=== PATIENT | female | born 1950 | race American Indian/Alaskan Native ===

== ENCOUNTER 2017-11-15 01:00 | Inpatient (IN) | payer BC, MEDICARE ==
--- NOTE | 2017-11-15 01:11 | C.PDOC ---
History Of Present Illness Patient ate haitian food around 8 pm. then developed some nausea and dizziness, and had 2 vomiting episodes. feels dizzy, no slurred speech, no visual changes, no weakness. Time Seen by Provider: 11/15/17 01:11 Chief Complaint (Nursing): Dizziness/Lightheaded History Per: Patient History/Exam Limitations: no limitations Onset/Duration Of Symptoms: Hrs Current Symptoms Are (Timing): Still Present Activity At Onset Of Symptoms: Sitting Associated Symptoms Preceding Syncopal Episode: Lightheadedness Seizure Or Post-ictal Symptoms: None Possible Causative Factor(s): Other (food, vomiting) Severity: Mild Pain Scale Rating Of: 3 Recent travel outside of the [place]: No Additional History Per: Patient - Symptoms Of CVA Associated Symptoms: denies: Impaired Speech, Seizure Activity, Decreased Ability To Walk Recent Aspirin Use: No Current Coumadin Use?: No Recent Head Trauma: No Past Medical History Reviewed: Historical Data, Nursing Documentation, Vital Signs Vital Signs: Last Vital Signs Temp 98.2 F 11/15/17 01:10 Pulse 74 11/15/17 01:52 Resp 22 11/15/17 01:52 BP 179/89 H 11/15/17 01:10 Pulse Ox 99 11/15/17 01:52 - Medical History PMH: Arthritis, HTN Denies: Chronic Kidney Disease - [facility] COMPLETE THYROIDECTOMY (05/11/14) Family History: States: No Known Family Hx - Social History Hx Tobacco Use: No Hx Alcohol Use: No Hx Substance Use: No - Immunization History Hx Tetanus Toxoid Vaccination: No Hx Influenza Vaccination: Yes Review Of Systems Constitutional: Negative for: Fever, Chills Eyes: Negative for: Redness ENT: Negative for: Throat Pain Cardiovascular: Negative for: Chest Pain, Palpitations Respiratory: Negative for: Shortness of Breath Genitourinary: Negative for: Dysuria Musculoskeletal: Negative for: Back Pain Skin: Positive for: Rash, Lesions (both lower legs) Neurological: Positive for: Dizziness. Negative for: Weakness, Change in Speech , Altered Mental Status, Headache Psych: Positive for: Anxiety Physical Exam - Physical Exam Appears: Non-toxic, No Acute Distress Skin: Warm, Dry Head: Normacephalic Eye(s): bilateral: Normal Inspection, PERRL, EOMI Nose: Normal Oral Mucosa: Moist Tongue: Normal Appearing Neck: Supple Chest: Symmetrical Cardiovascular: Rhythm Regular Respiratory: No Rales, No Rhonchi, No Wheezing Gastrointestinal/Abdominal: Soft, No Tenderness, No Distention, No Guarding, Other (morbidly obese) Back: No CVA Tenderness Extremity: No Tenderness, Pedal Edema (b/l), Other (skin changes vascular stasis ) Extremity: Bilateral: Atraumatic, Normal ROM Pulses: Left Dorsalis Pedis: Normal, Right Dorsalis Pedis: Normal Neurological/Psych: Oriented x3, Normal Speech, Normal Cognition, Normal Motor, Normal Sensation Gait: Steady ED Course And Treatment - Laboratory Results Result Diagrams: 11/15/17 01:20 11/15/17 01:20 ECG: Interpreted By Me, Viewed By Me ECG Rhythm: Sinus Rhythm (71), Nonspecific Changes O2 Sat by Pulse Oximetry: 99 Pulse Ox Interpretation: Normal Critical Care Time - Critical Care Note Total Time (in mins): 30 Documented critical care: time excludes all time spent performing seperately billable procedures. NIHSS Stroke Scale 2 - Date/Time Evaluation Performed Date Performed: 11/15/17 Time Performed: 01:09 When Was NIHSS Performed: Baseline - How Severe is the Stroke Level of Consciousness: 0=Alert LOC to Questions: 0=Both comments correct LOC to commands: 0=Obeys both correctly Best Gaze: 0=Normal Visual: 0=No visual loss Facial: 0=Normal Motor Arm - Left: 0=No drift Motor Arm - Right: 0=No drift Motor Leg - Left: 0=No drift Motor Leg - Right: 0=No drift Limb Ataxia: 0=Absent Sensory: 0=Normal Best Language: 0=No aphasia Dysarthia: 0=Normal articulation Extinction & Inattention (Neglect): 0=Normal, no object Score: 0 Disposition Discussed With : Greg Chauhan Comment: accepted the pt on his service and took over the care at 2 am Doctor Will See Patient In The: Hospital Counseled Patient/Family Regarding: Studies Performed, Diagnosis - Disposition Referrals: Greg Chauhan MD [Primary Care Provider] - Disposition: HOSPITALIZED Disposition Time: 01:11 Condition: FAIR Forms: [facility] (Cam[place]onian) - POA Present On Arrival: Poor Glycemic Control - Clinical Impression Clinical Impression: Dizziness, Hypertension Decision To Admit - Pt Status Changed To: Hospital Disposition Of: Inpatient - Admit Certification Admit to Inpatient:: After my assessment, the patient will require hospitalization for at least two midnights. This is because of the severity of symptoms shown, intensity of services needed, and/or the medical risk in this patient being treated as an outpatient. - InPatient: Physician Admission Certification: I certify that this patient requires 2 or more midnights of care for the following reason:: After my assessment, the patient will require hospitalization for at least two midnights. This is because of the severity of symptoms shown, intensity of services needed, and/or the medical risk in this patient being treated as an outpatient. - . Bed Request Type: Telemetry Admitting Physician: Greg Chauhan Patient Diagnosis: Dizziness, Hypertension
[2017-11-15 01:25] LABS: BASO # 0.1 K/uL (0.0-0.2); BASO % 0.6 % (0.0-2.0); EOS # 0.1 K/uL (0.0-0.7); EOS % 1.5 % (0.0-4.0); HEMOGLOBIN 13.9 g/dL (11.0-16.0); LYMPH # 1.3 K/uL (1.0-4.3); LYMPH % 15.1 % (20.0-40.0); MEAN CELL VOLUME 89.4 fL (81.0-99.0); MEAN CORPUSCULAR HEMOGLOBIN 30.5 pg (27.0-31.0); MEAN CORPUSCULAR HGB CONC 34.1 g/dL (33.0-37.0); MONO # 0.7 K/uL (0.0-0.8); MONO % 8.4 % (0.0-10.0); NEUT # 6.2 K/uL (1.8-7.0); NEUT % 74.4 % (50.0-75.0); RBC 4.56 Mil/uL (3.80-5.20); RED CELL DISTRIBUTION WIDTH 15.2 % (11.5-14.5)
[2017-11-15 01:28] LABS: WHITE BLOOD COUNT 8.4 K/uL (4.8-10.8)
[2017-11-15 01:31] LABS: PROTHROMBIN TIME 11.2 SECONDS (9.7-12.2)
[2017-11-15 01:37] LABS: ALB/GLOB RATIO 1.2 (1.0-2.1); ALBUMIN 4.5 g/dL (3.5-5.0); ALT/SGPT 25 U/L (9-52); AST/SGOT 25 U/L (14-36); BLOOD UREA NITROGEN 16 mg/dL (7-17); CALCIUM 9.3 mg/dl (8.6-10.4); GFR AFRICAN-AMERICAN > 60; GFR NON-AFRICAN AMERICAN > 60; HDL CHOLESTEROL 73 mg/dL (30-70)
--- NOTE | 2017-11-15 01:38 | CT ---
EXAM: CT Head Without Intravenous Contrast CLINICAL HISTORY: 67 years old, female; Pain; Headache and other: Dizzy; Additional info: Code stroke TECHNIQUE: Axial computed tomography images of the head/brain without intravenous contrast. All CT scans at this facility use one or more dose reduction techniques, viz.: automated exposure control; ma/kV adjustment per patient size (including targeted exams where dose is matched to indication; i.e. head); or iterative reconstruction technique. Coronal and sagittal reformatted images were created and reviewed. COMPARISON: No relevant prior studies available. FINDINGS: Brain: Mild atrophy. No intracranial hemorrhage. No mass. No definite edema. Ventricles: No hydrocephalus. Bones/joints: No acute fracture. Soft tissues: Unremarkable. Vasculature: Minimal atherosclerotic disease of intracranial arteries. Sinuses: Scattered minimal mucosal thickening. Mastoid air cells: No mastoid effusion. Orbits: Unremarkable as visualized. IMPRESSION: 1. No definite territorial infarction. Acute infarction may be CT occult within first 24 hours. If focal deficit persists, consider followup CT or MRI for further evaluation. 2. Incidental/non-acute findings are described above.
[2017-11-15 01:48] LABS: LDL CHOLESTEROL 87 mg/dL (0-129)
[2017-11-15] MEDS ORDERED: Enoxaparin 40 mg Syringe SC SCH (10:00)
[2017-11-15] MEDS ORDERED: Naproxen 550 mg Tab PO SCH (10:00)
[2017-11-15] MEDS ORDERED: Levothyroxine 50 MCG TAB PO ONE (10:32)
--- NOTE | 2017-11-15 10:50 | CP.PCM.PN ---
Subjective - Date & Time of Evaluation Date of Evaluation: 11/15/17 Time of Evaluation: 07:00 - Subjective Subjective: PGY [address] Chauhan: Patient was seen and examined at bedside this morning. She states that she at reheated [place] food yesterday in the evening then drink a Slimfast. She then sat down on the cough to watch sample prep technician karla and became dizzy. She got up to go to the kitchen and felt scared that she would have a heart attack because she was home alone. She denied chest pain, palpitations, cough, changes in vision, head aches, weakness/numbness. She stated on exam today that her dizziness had resolved. Objective - Vital Signs/Intake and Output Vital Signs (last 24 hours): Temp Pulse Resp BP Pulse Ox 98.3 F 68 21 156/68 H 98 11/15/17 04:00 11/15/17 04:00 11/15/17 04:00 11/15/17 04:00 11/15/17 04:00 Intake and Output: 11/15/17 11/15/17 06:59 18:59 Intake Total 120 Output Total 1900 Balance -1780 - Medications Medications: Current Medications Amlodipine Besylate (Norvasc) 10 mg PO DAILY [facility] Aspirin (Aspirin Chewable) 81 mg PO DAILY [facility] Enoxaparin Sodium (Lovenox) 40 mg SC DAILY [facility] Famotidine (Pepcid) 20 mg PO BID [facility] Losartan Potassium (Cozaar) 100 mg PO DAILY [facility] Metoprolol Succinate (Toprol Xl) 50 mg PO DAILY [facility] Naproxen (Anaprox Ds) 550 mg PO BID [facility] - Labs Labs: 11/15/17 01:20 11/15/17 01:20 PT 11.2 SECONDS (9.7-12.2) 11/15/17 01:20 INR 1.0 11/15/17 01:20 APTT 30 SECONDS (21-34) 11/15/17 01:20 - Constitutional Appears: Non-toxic, No Acute Distress - Head Exam Head Exam: ATRAUMATIC, NORMAL INSPECTION - Eye Exam Eye Exam: EOMI - ENT Exam ENT Exam: Mucous Membranes Moist - Respiratory Exam Respiratory Exam: Clear to Ausculation Bilateral, NORMAL BREATHING PATTERN. absent: Respiratory Distress - Cardiovascular Exam Cardiovascular Exam: REGULAR RHYTHM, +S1, +S2 - GI/Abdominal Exam GI & Abdominal Exam: Soft, Normal Bowel Sounds. absent: Distended, Firm, Guarding, Tenderness - Extremities Exam Extremities Exam: absent: Calf Tenderness Additional comments: severe venous stasis and chronic leg edema - Back Exam Back Exam: NORMAL INSPECTION. absent: CVA tenderness (L), CVA tenderness (R), paraspinal tenderness - Neurological Exam Neurological Exam: Alert, Awake, CN II-XII Intact, Oriented x3 Neuro motor strength exam: Left Upper Extremity: 5, Right Upper Extremity: 5, Left Lower Extremity: 5, Right Lower Extremity: 5 Additional comments: NIHSS zero ambulating with cane - Psychiatric Exam Psychiatric exam: Normal Affect, Normal Mood - Skin Skin Exam: Dry, Intact, Normal Color, Warm Assessment and Plan - Assessment and Plan (Free Text) Assessment: Dizziness Resolved Head CT - negative NIHSS - negative Neuro exam was completely negative. Patient was AAO x 3 and was able to move all extremities. Good strength, fine and gross motors in tact, gait regular ambulates with cane due to b/l knee arthritis, CN in tact, speaking well, no facial droop, sensation in tact. Hypertension Losartan 100 mg PO daily Amlodipine 10mg PO daily Metoprolol 50mg PO daily Controlled Arthritis Meloxican 15mg PO daily Hx. Thyroidectomy Levothyroxine 50mg PO daily Patient is stable for discharge home per Dr. Chauhan. Patient is to follow up with him in his office within one week of discharge. She is to continue all of her current medications. No changes were made during her hospital stay. Patient is to return to the ER if symptoms return. All instructions explained to the patient and she agrees. ALL medication management per Dr. Chauhan. Discussed with Dr. Chauhan.
[2017-11-15] MEDS: Metoprolol Succinate 50 mg XL Tab PO SCH ×2 (10:56→11:20)
[2017-11-15 12:52] VITALS: BP 138/66; RESP 13; TEMP 97.7; O2SAT 97
[2017-11-15 12:56] VITALS: PULSE 74
--- NOTE | 2017-11-15 13:20 | RAD ---
HISTORY: code stroke COMPARISON: Chest radiograph dated 05/11/2014. . FINDINGS: LUNGS: Low lung volumes. No active pulmonary disease. PLEURA: No significant pleural effusion identified, no pneumothorax apparent. CARDIOVASCULAR: Cardiomediastinal silhouette appears prominent; however, this cannot be accurately assessed on an AP projection. OSSEOUS STRUCTURES: Unchanged. VISUALIZED UPPER ABDOMEN: Normal. OTHER FINDINGS: None. IMPRESSION: No active disease.
--- NOTE | 2017-11-16 21:40 | CARD ---
APPROVED REPORT EKG Measurement Heart [id number] <Conclusion> Normal sinus rhythm Possible Left atrial enlargement Left ventricular hypertrophy Abnormal ECG
== END 2017-11-15 12:47 | disposition home or self-care (01) | DRG 149 ==
LOC: C.ER 01:00 → SUPCPDRO 01:00 → C.9I 01:53
PROVIDERS: ADMIT Internal Medicine Pulmonary Disease; ATTEND Internal Medicine Pulmonary Disease
DX: R42 Dizziness and giddiness (principal); I10 Essential (primary) hypertension; M17.0 Bilateral primary osteoarthritis of knee; Z79.899 Other long term (current) drug therapy

== ENCOUNTER 2018-11-30 08:25 | Outpatient (CLI) | payer MEDICARE, MEDICAID | END 2018-11-30 08:26 | disposition home or self-care (01) | LOC: C.CARD 08:25 | DX: Z01.810 Encounter for preprocedural cardiovascular examination (principal); I10 Essential (primary) hypertension ==